=== PATIENT | female | born 1995 | race Hispanic/Latino ===

== ENCOUNTER 2017-08-12 13:17 | Emergency (ER) | payer OTHER | END 2017-08-12 14:16 | disposition home or self-care (01) | LOC: ERS 13:17 | DX: F41.9 Anxiety disorder, unspecified (principal); J45.909 Unspecified asthma, uncomplicated | CPT/HCPCS: 93005 ==

== ENCOUNTER 2017-08-20 21:48 | Emergency (ER) | payer OTHER ==
[2017-08-20 23:00] LABS: #Eosinphils 0.1 thou/uL (0.0-0.7); #Lymphocytes 1.6 thou/uL (1.20-3.40); #Monocytes 0.4 thou/uL (0.11-0.59); #Neutrophils 6.8 thou/uL (1.40-6.50); %Basophils 0.4 % (0.0-1.0); %Eosinophils 0.9 % (0.0-10.0); %Lymphocytes 17.7 % (28.0-48.0); %Monocytes 4.5 % (0.0-4.0); Hematocrit 38.6 % (36.0-47.0); Mean Platelet Volume 6.7 fL (7.4-10.4); Red Blood Cell (RBC) Count 4.27 mill/uL (4.00-5.20); White Blood Cell (WBC) Count 8.9 thou/uL (4.8-10.8)
[2017-08-20 23:20] LABS: ALT (SGPT) 12 U/L (8-55); AST (SGOT) 18 U/L (5-30); Alkaline Phosphatase 77 U/L (40-150); Anion Gap 13 mmol/L (10-20); BUN (Urea Nitrogen) 9 mg/dL (8.4-21.0); Bilirubin, Total 0.2 mg/dL (0.2-1.2); Calc. Creatinine Clearance 0 mL/min (70-130); Calcium 8.8 mg/dL (7.8-10.44); Carbon Dioxide 22 mmol/L (22-29); Chloride 109 mmol/L (98-107); Estimated GFR-MDRD Greater than 90; Globulin 3.1 g/dL (2.4-3.5)
== END 2017-08-20 23:45 | disposition home or self-care (01) ==
LOC: ERS 21:48
DX: R55 Syncope and collapse (principal); J45.909 Unspecified asthma, uncomplicated
CPT/HCPCS: 36415; 80053; 80307; 85025; 93005

== ENCOUNTER 2017-10-21 22:04 | Emergency (ER) | payer OTHER ==
[2017-10-21 22:34] LABS: #Basophils 0.1 thou/uL (0.0-0.2); #Eosinphils 0.1 thou/uL (0.0-0.7); #Lymphocytes 1.9 thou/uL (1.20-3.40); #Monocytes 0.5 thou/uL (0.11-0.59); %Basophils 0.7 % (0.0-1.0); %Eosinophils 0.7 % (0.0-10.0); %Lymphocytes 17.8 % (28.0-48.0); %Monocytes 4.3 % (0.0-4.0); Hematocrit 40.4 % (36.0-47.0); Mean Platelet Volume 6.9 fL (7.4-10.4); Red Blood Cell (RBC) Count 4.49 mill/uL (4.00-5.20); White Blood Cell (WBC) Count 10.4 thou/uL (4.8-10.8)
[2017-10-21 23:55] LABS: Troponin I Less than 0.010 ng/mL (< 0.028)
[2017-10-22 00:15] LABS: Bilirubin Negative (Negative); Blood, Urine Negative (Negative); Glucose, Urine (Dipstick) Negative (Negative); Ketone, Urine 15 mg/dL (Negative); Nitrite Negative (Negative); Protein, Urine (Dipstick) Negative (Neg-Trace)
[2017-10-22 00:24] LABS: Amphetamine Not Detected (NotDetected); Methadone Not Detected (NotDetected); Methamphetamine Not Detected (NotDetected)
== END 2017-10-22 00:50 | disposition home or self-care (01) ==
LOC: ERS 22:04
DX: R55 Syncope and collapse (principal); J45.909 Unspecified asthma, uncomplicated; Z79.899 Other long term (current) drug therapy
CPT/HCPCS: 36415; 36416; 80306; 81003; 82553; 84443; 84484; 84703; 85025; 85379; 93005; 96360